=== PATIENT | female | born 1945 | race Caucasian/White ===

== ENCOUNTER 2017-05-03 12:58 | Day surgery (SDC) | payer OTHER, BC ==
[2017-05-03 13:37] VITALS: BMI 37.6
[2017-05-03] MEDS ORDERED: MIDAZOLAM HCL 2 MG/2 ML SINGLE DOSE VIAL ONE (13:46)
[2017-05-03] MEDS ORDERED: LIDOCAINE HCL/PF 2% SDV 5ML VIAL ONE (13:48)
[2017-05-03] MEDS ORDERED: PROPOFOL 20 ML ONE ×3 (13:48)
[2017-05-03] MEDS ORDERED: PHENYLEPHRINE HCL 10 MG/1 ML SINGLE DOSE VIAL ONE (14:10)
[2017-05-03] MEDS ORDERED: LABETALOL HCL 5 MG/1 ML (100MG/20 ML VIAL) ONE (14:55)
[2017-05-03] MEDS ORDERED: METOPROLOL TARTRATE 5 MG/5 ML VIAL ONE (14:57)
[2017-05-03 15:23] VITALS: TEMP 98.3
[2017-05-03 16:58] VITALS: BP 119/72; PULSE 62
--- NOTE | 2017-05-03 17:05 | PROC ---
Cardioversion Indication: Atrial fibrillation Risks and Benefits Explained: Yes Consent on Chart: Yes TI done prior to Cardioversion: Yes TI findings: No thrombus, depressed EF. See EMR for full report. Patient anticoagulated: Yes (michael) - Procedure Anesthesiologist present: Yes Medication given: propofol sedation, metoprolol 2.5 mg IV x 1 Joules delivered: 120 J Rhythm post cardioversion: SR with frequent APC's. Remarks: Successful DCCV of atrial fibrillation to sinus rhythm.
--- NOTE | 2017-05-04 12:28 | EKG ---
Test Reason : Blood Pressure : / mmHG Vent. Rate : 082 BPM Atrial Rate : 082 BPM P-R Int : 192 ms QRS Dur : 086 ms QT Int : 398 ms P-R-T Axes : 055 028 036 degrees QTc Int : 464 ms NORMAL SINUS RHYTHM NORMAL ECG WHEN COMPARED WITH ECG OF 18-AUG-2014 15:27, NO SIGNIFICANT CHANGE WAS FOUND Confirmed by LAN VALDEZ MD ([id number]) on 05/04/2017 12:27:57 PM Referred By: Kenisha Ramey Confirmed By:LAN VALDEZ MD
== END 2017-05-03 17:20 | disposition home or self-care (01) ==
LOC: JASU-ENDO 12:58
PROVIDERS: ATTEND Internal Medicine Cardiovascular Disease
PROC: 5A2204Z Restoration of Cardiac Rhythm, Single (ICD-10-PCS; 2017-05-03)
PROC: B246ZZ4 Ultrasonography of Right and Left Heart, Transesophageal (ICD-10-PCS; principal; 2017-05-03 14:00)
DX: I48.91 Unspecified atrial fibrillation (principal)
CPT/HCPCS: 92960; 93005; 93010; 93312; 93325

== ENCOUNTER 2024-06-04 12:51 | Emergency (ER) | payer OTHER, BC ==
[2024-06-04] MEDS ORDERED: ACETAMINOPHEN 500 MG TABLET (FP) ONE (14:08)
[2024-06-04 14:31] VITALS: BP 141/79; PULSE 77; RESP 20; TEMP 98.2; BMI 30.2
[2024-06-04] MEDS: ACETAMINOPHEN 500 MG TABLET (FP) PO ONE (14:34)
== END 2024-06-04 15:35 | disposition home or self-care (01) ==
LOC: FER 12:51
DX: M10.9 Gout, unspecified (principal); M79.89 Other specified soft tissue disorders; M79.671 Pain in right foot
CPT/HCPCS: 73630-TC-RT-FY; 93971-TC; 99284-25